=== PATIENT | female | born 1965 | race Caucasian/White ===

== ENCOUNTER 2017-06-05 18:23 | Emergency (ER) | payer BC ==
[2017-06-05 18:57] VITALS: BP 126/80
[2017-06-05] MEDS ORDERED: Lidocaine 1% 50 ML MDV INJECT ONE (19:07)
[2017-06-05] MEDS ORDERED: Cephalexin 500 MG Cap PO ONE (19:07)
--- NOTE | 2017-06-05 19:08 | EDM.PDOC ---
ED HPI GENERAL MEDICAL PROBLEM - General Chief Complaint: Laceration Stated Complaint: R LEG LAC Time Seen by Provider: 06/05/17 18:58 Source of Information: Reports: Patient History Limitations: Reports: No Limitations - History of Present Illness INITIAL COMMENTS - FREE TEXT/NARRATIVE: Patient is a 52-year-old female presents ED complaining of a puncture wound to the right lateral aspect of lower leg. Patient states she had been working in the garden and cut open a bag of manure with a set of saima. While working on the ground she moved her leg accidentally impaling the saima into her lower leg. It did bleed quite a bit prior to arrival. This has been controlled ever since. Pain has been minimal. She has no sensory/motor deficits. Tetanus is up- to-date. She offers no complaints this time. Saima were not clean. She did cleanse the laceration with tap water. Right Lower Leg Pain Score (Numeric/FACES): 4 - Related Data Allergies Allergy/AdvReac Type Severity Reaction Status Date / Time metronidazole [From Flagyl] Allergy Hallucinati Verified 02/28/15 17:32 ons Home Meds: Home Meds Folic Acid 800 mcg PO DAILY 02/28/15 [History] Magnesium Oxide 500 mg PO DAILY 02/28/15 [History] Methotrexate Sodium [Methotrexate] 8 tab PO WEEKLY 02/28/15 [History] Multivitamin with Minerals [Multivitamins with Minerals] 1 tab PO DAILY [History] [place]-3 Fatty Acids [[place]-3] 1 gm PO DAILY 02/28/15 [History] Cephalexin [Keflex] 500 mg PO Q6HR #28 cap 06/05/17 [Rx] Gabapentin [Neurontin] 200 mg PO DAILY 06/05/17 [History] Naltrexone 6 mg PO DAILY 06/05/17 [History] Spironolactone 50 mg PO DAILY 06/05/17 [History] rOPINIRole [Requip] 0.25 mg PO DAILY 06/05/17 [History] Past Medical History Musculoskeletal History: Reports: RA, Other (See Below) Other Musculoskeletal History: restless leg syndrome Endocrine/Metabolic History: Reports: Hypothyroidism Other Endocrine/Metabolic History: partial thyroidectomy - Past Surgical History Female Surgical History: Reports: Hysterectomy Social & Family History - Tobacco Use Smoking Status *Q: Never Smoker Second Hand Smoke Exposure: No - Caffeine Use Caffeine Use: Reports: Coffee - Alcohol Use Days Per Week of Alcohol Use: 0 Number of Drinks Per Day: 0 Total Drinks Per Week: 0 - Recreational Drug Use Recreational Drug Use: No Drug Use in Last 12 Months: No ED ROS GENERAL - Review of Systems Review Of Systems: See Below Musculoskeletal: Reports: Leg Pain Skin: Reports: Wound Neurological: Denies: Numbness, Tingling, Difficulty Walking ED EXAM, SKIN/RASH Exam: See Below Exam Limited By: No Limitations General Appearance: Alert, WD/WN, No Apparent Distress Ears: Hearing Grossly Normal Nose: Normal Inspection Throat/Mouth: Normal Voice, No Airway Compromise Neck: Normal Inspection, Supple Respiratory/Chest: No Respiratory Distress, No Accessory Muscle Use Cardiovascular: Normal Peripheral Pulses, Regular Rate, Rhythm Extremities: Other (Laceration to the right lower leg lateral aspect mid calf. No bleeding present. Minimal pain on palpation. No sensory or motor deficits noted.) Neurological: Alert, Oriented, Normal Cognition, No Motor/Sensory Deficits Psychiatric: Normal Affect, Normal Mood Skin: Warm, Dry, Normal Color ED SKIN PROCEDURES - Laceration/Wound Repair Right Lower Leg Lac/Wound length In cm: 2 Appearance: Subcutaneous, Clean Distal NVT: Neuro & Vascular Intact, No Tendon Injury Anesthetic Type: Local Local Anesthesia - Lidocaine (Xylocaine): 1% Plain Local Anesthetic Volume: 5cc Exploration/Debridement/Repair: Wound Explored, in a Bloodless Field, No Foreign Material Found Suture Size: 3-0 # of Sutures: 3 (loosely tied) Suture Type: Prolene, Interrupted, Simple Drain Placement: No Sterile Dressing Applied: Nurse Tetanus Status Addressed: Yes Complications: No Course - Vital Signs Last Recorded V/S: Last Vital Signs Temp 99.3 F 06/05/17 18:55 Pulse 96 06/05/17 18:55 Resp 20 06/05/17 18:55 BP 126/80 06/05/17 18:55 Pulse Ox 99 06/05/17 18:55 - Orders/Labs/Meds Meds: Medications Discontinued Medications Generic Name Dose Route Start Last Admin Trade Name Kev PRN Reason Stop Dose Admin Cephalexin 500 mg 06/05/17 19:07 06/05/17 19:12 Keflex PO 06/05/17 19:08 500 mg ONETIME ONE Administration Lidocaine HCl 50 ml 06/05/17 19:07 07/08/17 19:12 Xylocaine 1% INJECT 06/05/17 19:08 50 ml ONETIME ONE Administration - Re-Assessments/Exams Free Text/Narrative Re-Assessment/Exam: Ordered 1% lidocaine. Tetanus is uptodate. Laceration closed with no complications. Loose sutures placed. Ordered keflex 500mg PO x 1 prophylactically for increased infection risk. Departure - Departure Time of Disposition: 19:05 Disposition: Home, Self-Care 01 Condition: Good Clinical Impression: Laceration of leg Qualifiers: Encounter type: initial encounter Laterality: right Qualified Code(s): S81.811A - Laceration without foreign body, right lower leg, initial encounter - Discharge Information Prescriptions: Cephalexin [Keflex] 500 mg PO Q6HR #28 cap Instructions: Puncture Wound, [id number], Stitches, Tivoli, or Adhesive Wound Closure, [id number], Laceration Care, Adult, [id number] Referrals: Mica Mackenzie MD [Primary Care Provider] - Forms: ED Department Discharge Additional Instructions: Sutures to removed in 10 days. F/U with a provider at [facility] to do so. Cleanse site twice daily with soap and water, pat dry, reapply Triple Antibiotic ointment, and dressing. Keep area clean and dry. Refrain from soaking. Take the Keflex as prescribed. Return back to the ED for increased swelling, increased redness, fever/chills, or purulent drainage.
== END 2017-06-05 19:49 | disposition home or self-care (01) ==
LOC: JD.ED 18:23
DX: S81.811A Laceration without foreign body, right lower leg, initial encounter (principal); E89.0 Postprocedural hypothyroidism; Z90.710 Acquired absence of both cervix and uterus; Z79.899 Other long term (current) drug therapy; Z88.1 Allergy status to other antibiotic agents; W27.8XXA Contact with other nonpowered hand tool, initial encounter; Y93.89 Activity, other specified; Y92.89 Other specified places as the place of occurrence of the external cause
CPT/HCPCS: 12001; 99283; A9270; 99282-25

== ENCOUNTER 2018-04-12 12:07 | Emergency (ER) | payer BC ==
--- NOTE | 2018-04-12 13:29 | CT ---
CT cervical spine Technique: Multiple axial sections were obtained from above C1 to the top of T2. Reconstructed sagittal and coronal images were reviewed. Comparison: No prior cervical spine imaging. Findings: Disc space narrowing is noted C5-C6 with mild posterior osteophytes and anterior osteophytes. Slight degenerative change is seen within the uncovertebral joints at C5-C6 also noted. Other disc spaces are preserved. Vertebral body heights are maintained. Incidental ligamentum nuchal calcification is seen. Posterior skull base is intact. No cervical spine fracture is seen. No bony central or bony neural foraminal stenosis is seen. Impression: 1. Mild degenerative change. 2. Nothing acute is seen on CT study of the cervical spine. Diagnostic code #2
[2018-04-12] MEDS ORDERED: Ibuprofen 600 MG Tab PO ONE (13:36)
--- NOTE | 2018-04-12 13:36 | CT ---
Head CT Technique: Multiple axial sections through the brain were obtained. Intravenous contrast was not utilized. Comparison: Previous MRI brain of 01/12/12. Findings: Ventricles along with basal cisterns and sulci over the convexities appear within normal limits for the patient's age. No abnormal parenchymal densities are seen. No evidence of intracranial hemorrhage. No midline shift or mass effect is seen. Visualized sinuses are clear. Impression: 1. Nothing acute is seen on noncontrast head CT exam. Diagnostic code #1
--- NOTE | 2018-04-12 14:43 | CR ---
Lumbar spine: AP, lateral and coned-down lateral views centered to the lumbosacral junction were obtained. Comparison: Previous lumbar spine exam of 12/14/13. Moderate disc space narrowing is noted at L4-L5. Other disc spaces are maintained. Scattered endplate osteophytes are seen. Vertebral body heights are maintained with no compression deformity. Pedicles are intact. Visualized transverse and spinous processes are intact. No fracture or subluxation is appreciated. Impression: 1. Disc space narrowing at L4-L5 which is an interval change from prior CT exam. 2. Mild degenerative endplate spurring is seen. 3. Nothing acute is appreciated on three-view lumbar spine exam. Diagnostic code #2
--- NOTE | 2018-04-12 14:44 | CR ---
Right foot: Four views of the right foot were obtained. Comparison: No prior foot exam. Soft tissue swelling is identified. Deformity is noted of the distal proximal phalanx of the fourth and fifth toes compatible with old injury. Surgical wire is identified within the proximal phalanx of the first toe with evidence of previous metatarsal shaving within the distal first digit. Mild soft tissue prominence is seen at the MTP joint of the first digit. No acute fracture or other bony abnormality is seen. Impression: 1. Incidental findings. No acute bony abnormality is identified on right foot exam. Diagnostic code #2
--- NOTE | 2018-04-12 14:44 | CR ---
Left foot: Four views of the left foot were obtained. Comparison: No prior left foot exam. Small plantar spur is seen. Deformity is noted of the distal aspect of the proximal phalanx of the fourth toe most likely representing old injury. No acute fracture, dislocation or other bony abnormality is seen. Impression: 1. Incidental findings. Nothing acute is appreciated on left foot exam. Diagnostic code #2
--- NOTE | 2018-04-12 15:09 | EDM.PDOC ---
ED HPI GENERAL MEDICAL PROBLEM - General Chief Complaint: Trauma Stated Complaint: ALL OVER BODY PAIN/JUMPED OUT 2 STORY WINDOW Time Seen by Provider: 04/12/18 12:20 Source of Information: Reports: Patient History Limitations: Reports: No Limitations - History of Present Illness INITIAL COMMENTS - FREE TEXT/NARRATIVE: The patient was baby sitting her grandchildren. She went into an upstairs room to change a 5 month old. They 2 year old locked her in the room. They have special locks on the door. She could not get out of the room so she jumped out of a second story window. She landed on her feet and then fell over. She hit her head on an old fridge outside. She had no LOC. She has a headache, neck pain, low back pain and left and right foot pain. She has some bruising to both forearms. Onset: Sudden Duration: Minutes: Location: Reports: Head, Neck, Back, Lower Extremity, Left, Lower Extremity, Right Quality: Reports: Sharp Severity: Moderate Improves with: Reports: Immobilization Worsens with: Reports: Movement Context: Reports: Trauma (She jumped out of a 2nd story window) Associated Symptoms: Reports: No Other Symptoms Right Feet Pain Score (Numeric/FACES): 6 - Related Data Allergies Allergy/AdvReac Type Severity Reaction Status Date / Time metronidazole [From Flagyl] Allergy Hallucinati Verified 04/12/18 12:21 ons sumatriptan Allergy Paralysis Verified 04/12/18 12:21 Home Meds: Home Meds Folic Acid 800 mcg PO DAILY 02/28/15 [History] Magnesium Oxide 500 mg PO DAILY 02/28/15 [History] Methotrexate Sodium [Methotrexate] 8 tab PO WEEKLY 02/28/15 [History] Multivitamin with Minerals [Multivitamins with Minerals] 1 tab PO DAILY [History] [place]-3 Fatty Acids [[place]-3] 1 gm PO DAILY 02/28/15 [History] Cephalexin [Keflex] 500 mg PO Q6HR #28 cap 06/05/17 [Rx] Gabapentin [Neurontin] 200 mg PO DAILY 06/05/17 [History] Naltrexone 6 mg PO DAILY 06/05/17 [History] Spironolactone 50 mg PO DAILY 06/05/17 [History] rOPINIRole [Requip] 0.25 mg PO DAILY 06/05/17 [History] Hydrocodone/Acetaminophen [Hydrocodon-Acetaminophen 5-325] 1 - 2 each PO Q6HR PRN #20 tablet 04/12/18 [Rx] predniSONE [Prednisone] 40 mg PO DAILY #10 tablet 04/12/18 [Rx] Past Medical History Musculoskeletal History: Reports: RA, Other (See Below) Other Musculoskeletal History: restless leg syndrome Endocrine/Metabolic History: Reports: Hypothyroidism Other Endocrine/Metabolic History: partial thyroidectomy - Past Surgical History Female Surgical History: Reports: Hysterectomy Social & Family History - Tobacco Use Smoking Status *Q: Never Smoker - Caffeine Use Caffeine Use: Reports: Coffee - Recreational Drug Use Recreational Drug Use: No Review of Systems - Review of Systems Review Of Systems: See Below Constitutional: Reports: No Symptoms Eyes: Reports: No Symptoms Ears: Reports: No Symptoms Nose: Reports: No Symptoms Mouth/Throat: Reports: No Symptoms Respiratory: Reports: No Symptoms Cardiovascular: Reports: No Symptoms GI/Abdominal: Reports: No Symptoms Genitourinary: Reports: No Symptoms Musculoskeletal: Reports: Neck Pain, Back Pain, Other (Right and left foot pain) ED EXAM, GENERAL - Physical Exam Exam: See Below Exam Limited By: No Limitations General Appearance: Alert, No Apparent Distress Ears: Normal External Exam Nose: Normal Inspection Head: Other (Mild pain upon palpation) Neck: Tender Lateral Respiratory/Chest: No Respiratory Distress, Lungs Clear, Normal Breath Sounds Cardiovascular: Regular Rate, Rhythm, No Edema, No Murmur GI/Abdominal: Soft, Non-Tender, No Organomegaly, No Mass Back Exam: Other (Pain upon palpation to the low back) Extremities: Other (Ecchymosis and edema to the left foot. Pain upon palpation to the left lateral foot.) Neurological: Alert, Oriented, No Motor/Sensory Deficits Course - Vital Signs Last Recorded V/S: Last Vital Signs Temp 98.6 F 04/12/18 12:15 Pulse 77 04/12/18 12:15 Resp 16 04/12/18 12:15 BP 123/76 04/12/18 12:15 Pulse Ox 99 04/12/18 12:15 - Orders/Labs/Meds Meds: Medications Discontinued Medications Generic Name Dose Route Start Last Admin Trade Name Freq PRN Reason Stop Dose Admin Ibuprofen 600 mg 04/12/18 13:36 04/12/18 13:46 Motrin PO 04/12/18 13:37 600 mg ONETIME ONE Administration - Re-Assessments/Exams Free Text/Narrative Re-Assessment/Exam: 04/12/18 15:12 A trauma alert was called. I ordered a CT of her head and cervical spine, x- ray of her low back and both feet. The CT of her head and cervical spine shows no injury. The x-ray of her lumbar spine shows decreased disc space at L4-L5. The x-rays of her feet look good. She had pain so I gave her some mortrin here. I will discharge her home. Departure - Departure Time of Disposition: 15:15 Disposition: Home, Self-Care 01 Condition: Good Clinical Impression: Fall Qualifiers: Encounter type: initial encounter Qualified Code(s): W19.XXXA - Unspecified fall, initial encounter Low back pain Qualifiers: Chronicity: acute Back pain laterality: bilateral Sciatica presence: without sciatica Qualified Code(s): M54.5 - Low back pain Contusion of right foot Qualifiers: Encounter type: initial encounter Qualified Code(s): S90.31XA - Contusion of right foot, initial encounter Sprain of right foot Qualifiers: Encounter type: initial encounter Qualified Code(s): S93.601A - Unspecified sprain of right foot, initial encounter Sprain of left foot Qualifiers: Encounter type: initial encounter Qualified Code(s): S93.602A - Unspecified sprain of left foot, initial encounter - Discharge Information Prescriptions: Hydrocodone/Acetaminophen [Hydrocodon-Acetaminophen 5-325] 1 - 2 each PO Q6HR PRN #20 tablet PRN Reason: Pain predniSONE [Prednisone] 40 mg PO DAILY #10 tablet Referrals: Mica Mackenzie MD [Primary Care Provider] - 1 Week Forms: ED Department Discharge Additional Instructions: Ice the areas that hurt for 15 minutes 3 times per day for 2 days. Take the hydrocodone as needed for pain. Please return if you are worse.
[2018-04-12 15:32] VITALS: BP 120/70
== END 2018-04-12 15:25 | disposition home or self-care (01) ==
LOC: JD.ED 12:07
DX: S93.601A Unspecified sprain of right foot, initial encounter (principal); S93.602A Unspecified sprain of left foot, initial encounter; M54.5 Low back pain; E03.9 Hypothyroidism, unspecified; Z88.8 Allergy status to other drugs, medicaments and biological substances; Z79.899 Other long term (current) drug therapy; Z90.710 Acquired absence of both cervix and uterus; W17.89XA Other fall from one level to another, initial encounter
CPT/HCPCS: 70450; 72100; 72125; 73630; 99284; A9270

== ENCOUNTER 2019-02-23 10:31 | Emergency (ER) | payer BC ==
[2019-02-23] MEDS ORDERED: diphenhydrAMINE 50 MG/ML SDV IM ONE (10:57)
[2019-02-23] MEDS ORDERED: Famotidine 20 MG Tab PO ONE (11:03)
[2019-02-23] MEDS ORDERED: EPINEPHrine 1 MG/ML SDV IM ONE (11:03)
[2019-02-23] MEDS ORDERED: predniSONE 20 MG Tab ONE (11:20)
--- NOTE | 2019-02-23 11:36 | EDM.PDOC ---
ED HPI GENERAL MEDICAL PROBLEM - General Chief Complaint: Allergic Reaction Stated Complaint: ALLERGIC REACTION ALL OVER BODY Time Seen by Provider: 02/23/19 10:56 Source of Information: Reports: Patient, RN Notes Reviewed History Limitations: Reports: No Limitations - History of Present Illness INITIAL COMMENTS - FREE TEXT/NARRATIVE: Patient is a 54-year-old female who presents to the ED for the evaluation of an allergic reaction. 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 She states that she drank 3 or 4 drinks from a new nutritional shake this morning and she states shortly after she felt her throat started to feel itchy and funny while she was showering. She did look at the ingredient label afterwards and noticed the fine print that stated it did have psyllium in it. She admits to having mild swelling and redness to her eyes and mouth and feels itchy all over. She tried to take a Benadryl at home, but this did not stay down. She denies any other nausea/vomiting, cough, shortness of breath, chest pain. She states that she feels mild chest tightness but is still able to breathe normally. Onset: Sudden - Related Data Allergies Allergy/AdvReac Type Severity Reaction Status Date / Time metronidazole [From Flagyl] Allergy Hallucinati Verified 02/23/19 10:44 ons psyllium Allergy Hives Verified 02/23/19 10:44 sumatriptan Allergy Paralysis Verified 02/23/19 10:44 Home Meds: Home Meds Folic Acid 800 mcg PO DAILY 02/28/15 [History] Magnesium Oxide 500 mg PO DAILY 02/28/15 [History] Methotrexate Sodium [Methotrexate] 8 tab PO WEEKLY 02/28/15 [History] Multivitamin with Minerals [Multivitamins with Minerals] 1 tab PO DAILY [History] [place]-3 Fatty Acids [[place]-3] 1 gm PO DAILY 02/28/15 [History] Gabapentin [Neurontin] 100 mg PO BEDTIME 06/05/17 [History] Spironolactone 50 mg PO DAILY 06/05/17 [History] Pramipexole [Mirapex] 0.75 mg PO BEDTIME 02/23/19 [History] Tofacitinib Citrate [Xeljanz] 5 mg PO BID 02/23/19 [History] predniSONE [Deltasone] 40 mg PO ASDIRECTED #8 tablet 02/23/19 [Rx] Past Medical History Musculoskeletal History: Reports: RA, Other (See Below) Other Musculoskeletal History: restless leg syndrome Endocrine/Metabolic History: Reports: Hypothyroidism Other Endocrine/Metabolic History: partial thyroidectomy - Past Surgical History Female Surgical History: Reports: Hysterectomy Social & Family History - Tobacco Use Smoking Status *Q: Never Smoker - Caffeine Use Caffeine Use: Reports: None - Recreational Drug Use Recreational Drug Use: No ED ROS ALLERGIC REACTION - Review of Systems Review Of Systems: See Below Constitutional: Denies: Fever, Chills HEENT: Reports: Throat Swelling (Mild throat tightness feeling) Respiratory: Denies: Shortness of Breath, Wheezing, Cough Cardiovascular: Denies: Chest Pain Endocrine: Reports: No Symptoms GI/Abdominal: Reports: No Symptoms : Reports: No Symptoms Musculoskeletal: Reports: No Symptoms Skin: Reports: Urticaria (Generalized with hives) Neurological: Reports: No Symptoms Psychiatric: Reports: No Symptoms Hematologic/Lymphatic: Reports: No Symptoms Immunologic: Reports: No Symptoms ED EXAM GENERAL NO PERIP PULSE - Physical Exam Exam: See Below Exam Limited By: No Limitations General Appearance: Alert, WD/WN, Mild Distress (Patient is itching her scalp and arms upon initial presentation) Eye Exam: Bilateral Eye: EOMI, Normal Inspection, PERRL Ears: Normal External Exam Nose: Normal Inspection Throat/Mouth: Normal Inspection, Normal Lips, Normal Teeth, Normal Gums, Normal Oropharynx, Normal Voice, No Airway Compromise. No: Perioral Cyanosis Head: Atraumatic, Normocephalic Neck: Normal Inspection Respiratory/Chest: No Respiratory Distress, Lungs Clear, Normal Breath Sounds, No Accessory Muscle Use, Chest Non-Tender Cardiovascular: Normal Peripheral Pulses, Regular Rate, Rhythm, No Murmur GI/Abdominal: Normal Bowel Sounds, Soft, Non-Tender, No Distention, No Mass Back Exam: Normal Inspection Extremities: Normal Inspection, Normal Range of Motion, Non-Tender, No Pedal Edema, Normal Capillary Refill Neurological: Alert, Oriented, Normal Cognition, No Motor/Sensory Deficits Psychiatric: Normal Affect, Normal Mood Skin Exam: Warm, Dry, Intact, Normal Color, Other (Patient does have a generalized hive-like lesions that are itchy, there is mild redness noted to her face also some mild swelling.) Course - Vital Signs Last Recorded V/S: Last Vital Signs Temp 97.1 F 02/23/19 10:40 Pulse 80 02/23/19 12:32 Resp 16 02/23/19 12:32 BP 107/60 02/23/19 12:32 Pulse Ox 98 02/23/19 12:32 - Orders/Labs/Meds Meds: Medications Discontinued Medications Generic Name Dose Route Start Last Admin Trade Name Kev PRN Reason Stop Dose Admin Diphenhydramine HCl 25 mg 02/23/19 10:57 02/23/19 11:16 Benadryl IM 02/23/19 10:58 25 mg ONETIME ONE Administration Epinephrine HCl 0.3 mg 02/23/19 11:03 02/23/19 11:15 Adrenalin IM 02/23/19 11:04 0.3 mg ONETIME ONE Administration Famotidine 20 mg 02/23/19 11:03 02/23/19 11:17 Pepcid PO 02/23/19 11:04 20 mg ONETIME ONE Administration Prednisone 40 mg 02/24/19 11:06 02/23/19 11:21 Prednisone PO 02/24/19 11:07 40 mg ONETIME ONE Administration Prednisone Confirm 02/23/19 11:20 Prednisone Administered 02/23/19 11:21 Dose 40 mg .ROUTE .STK-MED ONE - Re-Assessments/Exams Free Text/Narrative Re-Assessment/Exam: 02/23/19 11:38 Patient presents to the ED for the evaluation of an allergic reaction to psyllium. I did order 40 mg PO prednisone, 25 mg IM Benadryl, 20 mg PO Pepcid and 0.3mg IM of epinephrine for initial management. We'll reassess the patient to determine need for further epinephrine at this time. Plan to send the patient home on a short burst of prednisone. 02/23/19 12:12 Patient was reassessed at bedside and states she feels much better. Most of her itching has relieved by 95%. Will discharge her home with a short course of prednisone. Have also recommended the use of OTC Zantac or Pepcid for further itching relief. Departure - Departure Time of Disposition: 12:13 Disposition: Home, Self-Care 01 Condition: Fair Clinical Impression: Allergic reaction Qualifiers: Encounter type: initial encounter Qualified Code(s): T78.40XA - Allergy, unspecified, initial encounter - Discharge Information *PRESCRIPTION DRUG MONITORING PROGRAM REVIEWED*: No *COPY OF PRESCRIPTION DRUG MONITORING REPORT IN PATIENT NILESH: No Prescriptions: predniSONE [Deltasone] 40 mg PO ASDIRECTED #8 tablet Instructions: Anaphylactic Reaction, Adult, Epinephrine Injection Referrals: Mica Mackenzie MD [Primary Care Provider] - Forms: ED Department Discharge Additional Instructions: You have been evaluated in the ED today for your allergic reaction to psyllium. You have been given a combination of medications to relieve your allergic symptoms. You have been provided with prescription for prednisone, please take 2 tablets by mouth once daily for 4 days. This was sent to the [facility] pharmacy. You may also take [id number] Zantac or Pepcid for further itching relief. Please return to the ED if your symptoms change or worsen.
[2019-02-23 12:35] VITALS: BP 107/60
[2019-02-24] MEDS ORDERED: predniSONE 20 MG Tab PO ONE (11:06)
== END 2019-02-23 12:32 | disposition home or self-care (01) ==
LOC: JD.ED 10:31
DX: L50.0 Allergic urticaria (principal); E03.9 Hypothyroidism, unspecified; Z91.018 Allergy to other foods; Z88.8 Allergy status to other drugs, medicaments and biological substances; Z79.899 Other long term (current) drug therapy
CPT/HCPCS: 96372; 99283; A9270; J0171; J1200

== ENCOUNTER 2020-06-20 22:37 | Emergency (ER) | payer BC ==
[2020-06-20 22:48] VITALS: BP 141/76; PULSE 66
[2020-06-20] MEDS ORDERED: Tamsulosin 0.4 MG Cap.ER PO ONE (23:06)
[2020-06-20] MEDS ORDERED: HYDROmorphone 0.5 MG/0.5 ML Syringe IVPUSH ONE (23:06)
[2020-06-20] MEDS ORDERED: Ondansetron 4 MG/2 ML SDV IVPUSH ONE (23:06)
[2020-06-20] MEDS ORDERED: Ketorolac 30 MG/ML SDV IVPUSH STA (23:06)
--- NOTE | 2020-06-20 23:11 | EDM.PDOC ---
ED HPI GENERAL MEDICAL PROBLEM - General Chief Complaint: Flank Pain Stated Complaint: FLANK PAIN Time Seen by Provider: 06/20/20 22:47 Source of Information: Reports: Patient, Family (Daughter) History Limitations: Reports: No Limitations - History of Present Illness INITIAL COMMENTS - FREE TEXT/NARRATIVE: Mrs. Singh is a very pleasant 55-year-old woman with a past medical history significant for ureterolithiasis and rheumatoid arthritis, who now presents to the ED stating that she developed right flank pain this past 06/18/2020, and that it has been persistent since, although less severe, and has not been present today. She has been experiencing lower back pain, felt across her lower back, today, although she acknowledges that, due to her rheumatoid arthritis, she often has lower back pain. She then developed sudden onset lower abdominal pain/pressure around 19:00 this evening. She vomited once, and therefore did not take any [id number] or home remedies prior to coming to the ED. No recent fever, chills, constipation, or diarrhea. She states that she has not urinated since around 19:00 this evening, having been able to only dribble a few drops, however, she has not experienced any dysuria, urinary frequency or urgency, or gross hematuria. The patient states that her current symptoms are very similar to when she experienced a ureterolith in the past. She previously had to undergo cystoscopy with ureteral stent. Here in the ED, the patient's initial BP is found to be mildly elevated at 141/76, otherwise, she is hemodynamically stable, afebrile, saturating 100% on room air. Other than the above symptoms, the patient denies recent fever, chills, sore throat, ear pain, nasal or sinus congestion, cough, dyspnea, chest pain, palp itations, constipation, diarrhea, urinary symptoms, recent weight gain or weight loss, recent bloody bowel movements or black bowel movements, recent joint aches, headaches, or rashes. The patient's PCP is Dr. Mica Fuentes. Her [employer] is Dr. Jimenez Cartagena. Bilateral Lower Abdomen Pain Score (Numeric/FACES): 10 - Related Data Allergies Allergy/AdvReac Type Severity Reaction Status Date / Time metronidazole [From Flagyl] Allergy Severe Hallucinati Verified 06/20/20 22:48 ons psyllium Allergy Severe Hives Verified 06/20/20 22:48 sumatriptan Allergy Severe Paralysis Verified 06/20/20 22:48 Home Meds: Home Meds Folic Acid 800 mcg PO DAILY 02/28/15 [History] Magnesium Oxide 500 mg PO DAILY 02/28/15 [History] Methotrexate Sodium [Methotrexate] 8 tab PO WEEKLY 02/28/15 [History] Multivitamin with Minerals [Multivitamins with Minerals] 1 tab PO DAILY 02/28/15 [History] Downs-3 Fatty Acids [Downs-3] 1 gm PO DAILY 02/28/15 [History] Gabapentin [Neurontin] 100 mg PO BEDTIME 06/05/17 [History] Spironolactone 50 mg PO DAILY 06/05/17 [History] Pramipexole [Mirapex] 0.75 mg PO BEDTIME 02/23/19 [History] Tofacitinib Citrate [Xeljanz] 5 mg PO BID 02/23/19 [History] Past Medical History Genitourinary History: Reports: Renal Calculus Musculoskeletal History: Reports: RA Psychiatric History: Reports: Other (See Below) (Restless leg syndrome) - Past Surgical History GI Surgical History: Reports: Other (See Below) (Rectal repair) Female Surgical History: Reports: Breast Reduction, Hysterectomy (partial), Ureteral Stent, Other (See Below) (Baldder repair) Endocrine Surgical History: Reports: Thyroidectomy (partial) Musculoskeletal Surgical History: Reports: Other (See Below) (Right bunionectomy) Social & Family History - Family History Family Medical History: Noncontributory - Tobacco Use Smoking Status *Q: Never Smoker - Caffeine Use Caffeine Use: Reports: Coffee - Alcohol Use Alcohol Use History: Yes Alcohol Use Frequency: Socially - Recreational Drug Use Recreational Drug Use: No - Living Situation & Occupation Living situation: Reports: , with Spouse Occupation: Employed (RN at [employer]) ED ROS GENERAL - Review of Systems Review Of Systems: Comprehensive ROS is negative, except as noted in HPI. ED EXAM, RENAL/ - Physical Exam Exam: See Below Exam Limited By: No Limitations General Appearance: Alert, WD/WN, No Apparent Distress Eye Exam: Bilateral Eye: EOMI, Normal Inspection Ears: Normal External Exam, Hearing Grossly Normal Nose: Normal Inspection Throat/Mouth: Normal Inspection, Normal Lips, Normal Voice, No Airway Compromise Head: Atraumatic, Normocephalic Neck: Normal Inspection, Full Range of Motion Respiratory/Chest: No Respiratory Distress, Lungs Clear, Normal Breath Sounds, No Accessory Muscle Use Cardiovascular: Normal Peripheral Pulses, Regular Rate, Rhythm, No Edema, No Gallop, No JVD, No Murmur, No Rub GI/Abdominal: Normal Bowel Sounds, Soft, Non-Tender (including the lower abdomen), No Organomegaly, No Distention, No Abnormal Bruit, No Mass (Female) Exam: Deferred Rectal (Female) Exam: Deferred Back Exam: Normal Inspection, Full Range of Motion, CVA Tenderness (L). No: CVA Tenderness (R) Extremities: Normal Inspection, Normal Range of Motion, No Pedal Edema, Normal Capillary Refill Neurological: Alert, Oriented, Normal Cognition, No Motor/Sensory Deficits Psychiatric: Normal Affect Skin Exam: Warm, Dry, Intact, Normal Color, No Rash Course - Vital Signs Last Recorded V/S: Last Vital Signs Temp 36.1 C 06/20/20 22:44 Pulse 66 06/20/20 22:44 Resp 18 06/20/20 22:44 BP 141/76 H 06/20/20 22:44 Pulse Ox 100 06/20/20 22:44 - Orders/Labs/Meds Orders: Active Orders 24 hr Category Date Time Status Bladder Scan [RC] ASDIRECTED Care 06/20/20 23:05 Active Abdomen Pelvis wo Cont [CT] Stat Exams 06/20/20 23:05 Taken Labs: Laboratory Tests 06/21/20 Range/Units 00:24 Urine Color Yellow (Yellow) Urine Appearance Cloudy H (Clear) Urine pH 7.0 (5.0-8.0) Ur Specific [place] 1.025 (1.005-1.030) Urine Protein 1+ H (Negative) Urine Glucose (UA) Negative (Negative) Urine Ketones 1+ H (Negative) Urine Occult Blood 3+ H (Negative) Urine Nitrite Negative (Negative) Urine Bilirubin Negative (Negative) Urine Urobilinogen 0.2 (0.2-1.0) Ur Leukocyte Esterase Negative (Negative) Urine RBC >100 H (0-5) /hpf Urine WBC 0-5 (0-5) /hpf Ur Squamous Epith Cells 0-5 (0-5) /hpf Amorphous Sediment Moderate H (NOT SEEN) /hpf Urine Bacteria Moderate H (FEW) /hpf Urine Mucus Rare (FEW) /hpf Meds: Medications Discontinued Medications Generic Name Dose Route Start Last Admin Trade Name Kev PRN Reason Stop Dose Admin Hydromorphone HCl 0.5 mg 06/20/20 23:06 06/20/20 23:16 Dilaudid IVPUSH 06/20/20 23:07 0.5 mg ONETIME ONE Administration Sodium Chloride 1,000 mls @ 150 mls/hr 06/20/20 23:15 06/20/20 23:15 Normal Saline IV 150 mls/hr ASDIRECTED RAZIA Administration Sodium Chloride 1,000 mls @ 999 mls/hr 06/20/20 23:27 06/20/20 23:31 Normal Saline IV 06/21/20 00:27 999 mls/hr ONETIME ONE Administration Ketorolac Tromethamine 30 mg 06/20/20 23:06 06/20/20 23:19 Toradol IVPUSH 06/20/20 23:07 30 mg ONETIME STA Administration Ondansetron HCl 4 mg 06/20/20 23:06 06/20/20 23:15 Zofran IVPUSH 06/20/20 23:07 4 mg ONETIME ONE Administration Tamsulosin HCl 0.4 mg 06/20/20 23:06 06/20/20 23:20 Flomax PO 06/20/20 23:07 0.4 mg ONETIME ONE Administration - Re-Assessments/Exams Free Text/Narrative Re-Assessment/Exam: 06/20/20 23:07 As above, the patient has been suffering from right flank pain Julia, 06/18/2020, although no flank pain today, then she developed lower back pain today, with sudden onset lower abdominal pain and pressure around 19:00 this evening. She has vomited once. She has only dribbled a small amount of urine since 21:00 this evening, but denies urinary symptoms. She states that her symptoms are very similar to a prior kidney stone. On examination, her abdomen is soft and essentially nontender, with normoactive bowel sounds, and she is found to have left, not right, sided CVA tenderness. The etiology of her symptoms is not entirely clear. I have ordered a bladder scan. If there is no urine in the patient's bladder, she will be given generous IV fluid, however, if there is urine in the bladder that she is simply unable to urinate out, we will acquire a urine sample by a quick cath. I have ordered a CT of her abdomen and pelvis without contrast to evaluate for a ureterolith, and in the meantime, the patient will be given oral Flomax, IV Toradol, IV Dilaudid, IV Zofran, and IV fluid. 06/20/20 23:27 Notified by Anabell SULLIVAN that the bladder scan revealed only 63 mL of urine. I have therefore switched the patient's IV fluid to a 1 L IVF bolus. 06/20/20 23:57 CT of the abdomen and pelvis without contrast is read by vRgeovanna as: 1. Prominent left hydroureteronephrosis and left nephrolithiasis. 2. There is an obstructing 9.0 x 6.0 x 7.0 mm proximal left ureteral calculus. 3. There is an obstructing 5.0 x 4.0 mm left UVJ calculus. The patient has not yet provided a urine sample for the urinalysis. 06/21/20 00:52 The patient's urinalysis is remarkable for cloudy appearance, 3+ occult blood with >100 RBCs, negative leukocyte esterase with 0-5 WBCs, negative nitrite with moderate bacteria, and 0-5 squamous epithelial cells. 06/21/20 01:00 Test results discussed with the patient and her daughter. I will discharge the patient home with [facility] prescriptions for Flomax, [employer] [place], and Zofran. I would like her to take [id number] ibuprofen on a regular basis. I will refer her to Dr. Flor. We will make a CD-ROM of her CT images to take with her when she sees him. Departure - Departure Time of Disposition: 01:03 Disposition: Home, Self-Care 01 Condition: Good Clinical Impression: Ureterolithiasis - Discharge Information *PRESCRIPTION DRUG MONITORING PROGRAM REVIEWED*: Not Applicable *COPY OF PRESCRIPTION DRUG MONITORING REPORT IN PATIENT NILESH: Not Applicable Instructions: Kidney Stones, [id number] Referrals: Mica Mackenzie MD [Primary Care Provider] - Jimenez Cartagena MD [Ordering Only Provider] - Devyn Flor MD [Ordering Only Provider] - Forms: ED Department Discharge Additional Instructions: You were seen in the emergency room after experiencing right flank pain since Julia, lower back pain today, then lower abdominal pain this evening, along with nausea and vomiting. Work-up in the ER included a urinalysis and a CT scan of your abdomen and pelvis without contrast. The urinalysis did not indicate that you have a urinary tract infection. The CT scan found a stone in your left kidney, a stone in your proximal left ureter, and a another stone at your left ureterovesicular junction. Based on the size and locations of the stones, you will not likely pass them on your own. He will need to see a Urologist. We recommend that you take [id number] ibuprofen, 3 to 4 tablets (600-800 mg) up to every 8 hours, with food, [id number]. You may take 1 to 2 tablets of the opioid pain reliever Percocet up to every 6 hours, as needed for pain not relieved by ibuprofen. If you take Percocet, do not drive for 12 hours afterwards. Percocet may cause constipation, so consider taking a stool softener. Take 1 tablet of the anti-spasm medicine tamsulosin (Flomax) every evening, starting this evening, 06/21/2020, as prescribed. You may dissolve 1 tablet of the anti-nausea medicine Zofran on your tongue up to every 8 hours, as needed for nausea/vomiting. Stay adequately hydrated. It does not really matter what type of fluid you drink. Follow-up with the Urologist Dr. Devyn Flor, in [place], at the next available appointment. Make sure that the director child abuse therapy understands that you are following up from the ER. A CD-ROM of your CT images has been provided to you. Make sure that you take t he CD-ROM with you when you see Dr. Flor. If any other problems, please do not hesitate to return to the ER. Sepsis Event Note (ED) - Evaluation Sepsis Screening Result: No Definite Risk - Focused Exam Vital Signs: Vital Signs Temp Pulse Resp BP Pulse Ox 06/20/20 22:44 36.1 C 66 18 141/76 H 100 - My Orders Last 24 Hours: My Active Orders 06/20/20 23:05 Bladder Scan [RC] ASDIRECTED Abdomen Pelvis wo Cont [CT] Stat - Assessment/Plan Last 24 Hours: My Active Orders 06/20/20 23:05 Bladder Scan [RC] ASDIRECTED Abdomen Pelvis wo Cont [CT] Stat
[2020-06-20] MEDS ORDERED: Sodium Chloride 0.9% 1,000 ML IV SCH (23:15)
[2020-06-20] MEDS ORDERED: Sodium Chloride 0.9% 1,000 ML IV ONE (23:27)
--- NOTE | 2020-06-21 09:20 | CT ---
CT abdomen and pelvis Technique: Multiple axial sections were obtained from slightly below the top of the liver inferiorly through the pubic symphysis. Intravenous and oral contrast not utilized. Study has been performed as a ureteral stone protocol. Comparison: Prior CT abdomen and pelvis exam of 06/26/13. Findings: Dilated collecting system of the left kidney with dilated ureter. Calculus is noted within the proximal left ureter located slightly past the UPJ measuring about 9 mm. 2nd obstructing stone is noted within the distal left ureter at the UVJ measuring about 4-5 mm. Scattered small nonobstructing calculi noted within the left kidney. Small hyperdense lesion is noted off the upper left kidney measuring 6 mm which most likely represents a small hemorrhagic cyst. Low density abnormality is noted within the mid right kidney measuring 9 mm which is most likely due to a small cortical cyst. Other findings: Visualized lung bases show nothing acute. Noncontrast appearance of the visualized liver shows no focal abnormality. Spleen appears within normal limits. Adrenal glands show no nodule. Pancreas shows no discrete abnormality. Gallbladder contains no calcified gallstones. Aorta shows no aneurysm. No retroperitoneal adenopathy or mesenteric abnormalities are seen. Fat-containing umbilical hernia is identified. Appendix is seen which is normal. No pelvic mass or adenopathy is seen. No free fluid or inflammatory change is seen within the abdomen or pelvis. Bone window settings were reviewed which shows no acute osseous finding. Disc space narrowing and vacuum phenomena are noted within the L4-5 disc. Evidence of annular rupture at L4-5 with a small amount of epidural air being seen within the central canal. Impression: 1. Dilated left ureter with 2 ureteral stones. Proximal stone located slightly past the UPJ measuring 9.0 mm. Distal stone measures 4-5 mm and is located near the UVJ within the distal left ureter. 2. Small nonobstructing calculi within the left kidney. Other renal findings believed to be incidental as described above. 3. Other findings believed to be nonacute as described above. Diagnostic code #3 This report was dictated in MDT I agree with preliminary report from geovanna, finalized on 06/21/20, 12:54 AM Central Daylight Time
== END 2020-06-21 01:31 | disposition home or self-care (01) ==
LOC: JD.ED 22:37
DX: N13.2 Hydronephrosis with renal and ureteral calculous obstruction (principal); R11.10 Vomiting, unspecified; Z88.1 Allergy status to other antibiotic agents; Z88.8 Allergy status to other drugs, medicaments and biological substances; Z79.899 Other long term (current) drug therapy; Z90.710 Acquired absence of both cervix and uterus; Z98.890 Other specified postprocedural states
CPT/HCPCS: 51798; 74176; 81001; 96361; 96374; 96375; 99284; A9270; J1170; J1885; J2405; J7030; 99283

== ENCOUNTER 2022-08-03 16:24 | Emergency (ER) | payer BC ==
[2022-08-03 17:40] VITALS: BP 127/84; PULSE 79
[2022-08-03] MEDS ORDERED: Ondansetron 4 MG/2 ML SDV IVPUSH ONE (18:58)
[2022-08-03] MEDS ORDERED: HYDROmorphone 0.5 MG/0.5 ML Syringe IVPUSH ONE (18:58)
[2022-08-03] MEDS ORDERED: Ketorolac 30 MG/ML SDV IVPUSH ONE (18:58)
[2022-08-03] MEDS ORDERED: Sodium Chloride 0.9% 1,000 ML IV STA (18:58)
[2022-08-03] MEDS ORDERED: Cefdinir 300 MG Cap PO ONE (20:57)
[2022-08-03] MEDS ORDERED: Acetaminophen/oxyCODONE 325-5 MG Tab PO ONE (20:57)
== END 2022-08-03 21:20 | disposition home or self-care (01) ==
LOC: JD.ED 16:24
DX: N39.0 Urinary tract infection, site not specified (principal); Z88.8 Allergy status to other drugs, medicaments and biological substances; Z79.899 Other long term (current) drug therapy; Z90.710 Acquired absence of both cervix and uterus
CPT/HCPCS: 36415; 74176; 80053; 81001; 85025; 86140; 87086; 96374; 96375; 99284; A9270; J1170; J1885; J2405; J7030

== ENCOUNTER 2023-04-08 17:21 | Emergency (ER) | payer BC ==
[2023-04-08 17:38] VITALS: BP 118/76; PULSE 80
[2023-04-08] MEDS ORDERED: Sodium Chloride 0.9% 10 ML Syringe FLUSH PRN (18:25)
[2023-04-08 18:46] LABS: BASOPHILS ABSOLUTE AUTO 0.02 K/mm3 (0.01-0.08); BASOPHILS PERCENT AUTO 0.3 % (0.1-1.2); EOSINOPHILS ABSOLUTE AUTO 0.26 K/mm3 (0.04-0.36); EOSINOPHILS PERCENT AUTO 3.9 (0.7-5.8); HEMATOCRIT 36.9 % (34.1-44.9); HEMOGLOBIN 12.1 gm/dl (11.2-15.7); IMMATURE GRAN ABSOLUTE AUTO 0.01 K/mm3 (0.00-0.10); IMMATURE GRAN PERCENT AUTO 0.2 % (<=1.0); LYMPHOCYTES ABSOLUTE AUTO 0.87 K/mm3 (1.18-3.74); LYMPHOCYTES PERCENT AUTO 13.1 % (19.3-51.7); MEAN CORPUSCULAR HEMOGLOBIN 30.5 pg (25.6-32.2); MEAN CORPUSCULAR HGB CONC 32.8 g/dl (32.2-35.5); MEAN CORPUSCULAR VOLUME 92.9 fl (79.4-94.8); MEAN PLATELET VOLUME 9.3 fl (9.4-12.3); MONOCYTES ABSOLUTE AUTO 0.58 K/mm3 (0.24-0.36); MONOCYTES PERCENT AUTO 8.7 % (4.7-12.5); NEUTROPHILS ABSOLUTE AUTO 4.92 K/mm3 (1.56-6.13); NEUTROPHILS PERCENT AUTO 73.8 % (34.0-71.1); PLATELET COUNT,PLT 205 K/mm3 (182-369); RED BLOOD CELL COUNT 3.97 M/mm3 (3.98-5.22); WHITE BLOOD CELL COUNT,WBC 6.66 K/mm3 (3.98-10.04)
[2023-04-08 18:46] LABS: APPEARANCE,URINE SLT CLOUDY (Clear); BILIRUBIN,URINE NEGATIVE (Negative); COLOR,URINE YELLOW (Yellow); GLUCOSE,URINE NEGATIVE (Negative); KETONES,URINE NEGATIVE (Negative); LEUKOCYTE ESTERASE,URINE TRACE (Negative); NITRITE,URINE NEGATIVE (Negative); OCCULT BLOOD,URINE 2+ (Negative); PH,URINE 6.5 (5.0-8.0); PROTEIN,URINE 1+ (Negative); UROBILINOGEN,URINE 0.2 (0.2-1.0)
[2023-04-08 18:54] LABS: BACTERIA,URINE FEW /hpf (FEW); MUCUS,URINE MODERATE /hpf (FEW); RBC,URINE TOO NUMEROUS TO CNT /hpf (0-5); SQUAMOUS EPITHELIAL CELLS,UR 0-5 /hpf (0-5)
[2023-04-08 19:03] LABS: A/G RATIO 0.9 (1-2); ALBUMIN 3.2 g/dl (3.4-5.0); ANION GAP 11.8 (5-15); BILIRUBIN TOTAL 0.4 mg/dL (0.2-1.0); CALCIUM 8.7 mg/dL (8.5-10.1); EST CRCL DRUG DOSING (CG) 67.12 mL/min; POTASSIUM,K 2.8 mEq/L (3.5-5.1); PROTEIN TOTAL,TP 6.7 g/dl (6.4-8.2)
[2023-04-08] MEDS ORDERED: Potassium Chloride 20 MEQ Tab.ER PO ONE (19:35)
== END 2023-04-08 20:03 | disposition home or self-care (01) ==
LOC: JD.ED 17:21
DX: N13.2 Hydronephrosis with renal and ureteral calculous obstruction (principal); E87.6 Hypokalemia; Z88.8 Allergy status to other drugs, medicaments and biological substances
CPT/HCPCS: 36415; 74176; 80053; 81001; 85025; 87086; 99284; A9270; J3490

== ENCOUNTER 2024-04-29 15:34 | Emergency (ER) | payer BC ==
[2024-04-29 15:43] VITALS: BP 127/79; PULSE 81
[2024-04-29 17:55] LABS: BASOPHILS ABSOLUTE AUTO 0.1 K/mm3 (0.0-0.2); BASOPHILS PERCENT AUTO 0.9 % (0.0-1.0); EOSINOPHILS ABSOLUTE AUTO 0.1 K/mm3 (0.0-0.4); EOSINOPHILS PERCENT AUTO 2.3 % (0.0-6.0); HEMATOCRIT 37.4 % (37.0-47.0); HEMOGLOBIN 12.6 gm/dl (12.0-16.0); IMMATURE GRAN ABSOLUTE AUTO 0.02 K/mm3 (0.00-0.05); IMMATURE GRAN PERCENT AUTO 0.3 % (0.0-0.4); LYMPHOCYTES ABSOLUTE AUTO 1.1 K/mm3 (1.0-4.8); LYMPHOCYTES PERCENT AUTO 18.4 % (24.0-44.0); MEAN CORPUSCULAR HEMOGLOBIN 31.2 pg (28.0-32.0); MEAN CORPUSCULAR HGB CONC 33.7 g/dl (32.0-36.0); MEAN CORPUSCULAR VOLUME 92.6 fl (83.0-99.0); MONOCYTES ABSOLUTE AUTO 0.7 K/mm3 (0.0-0.8); MONOCYTES PERCENT AUTO 11.5 % (0.0-8.0); NEUTROPHILS ABSOLUTE AUTO 3.8 K/mm3 (1.8-7.7); NEUTROPHILS PERCENT AUTO 66.6 % (41.0-71.0); PLATELET COUNT,PLT 219 K/mm3 (150-400); RED BLOOD CELL COUNT 4.04 M/mm3 (4.10-5.30); WHITE BLOOD CELL COUNT,WBC 5.72 K/mm3 (3.9-11.3)
[2024-04-29] MEDS: Ketorolac 60 MG/2 ML SDV IM ONE (18:00)
[2024-04-29 18:19] LABS: LACTIC ACID 0.4 mmol/L (0.4-2.0)
[2024-04-29 18:26] LABS: A/G RATIO 1.1 (1-2); ALBUMIN 3.4 g/dl (3.4-5.0); ANION GAP 11.5 (5-15); BILIRUBIN TOTAL 0.5 mg/dL (0.2-1.0); BUN/CREATININE RATIO 16.4 (14-18); C-REACTIVE PROTEIN 0.7 mg/dL (<0.30); CALCIUM 9.3 mg/dL (8.5-10.1); CREATININE 1.1 mg/dL (0.55-1.02); EST CRCL DRUG DOSING (CG) 59.27 mL/min; POTASSIUM,K 3.5 mEq/L (3.5-5.1); PROTEIN TOTAL,TP 6.5 g/dl (6.4-8.2)
== END 2024-04-29 20:44 | disposition home or self-care (01) ==
LOC: JD.ED 15:34
DX: M25.561 Pain in right knee (principal); E03.9 Hypothyroidism, unspecified; Z88.8 Allergy status to other drugs, medicaments and biological substances; Z79.899 Other long term (current) drug therapy; Z90.710 Acquired absence of both cervix and uterus; Z86.16 Personal history of COVID-19
CPT/HCPCS: 36415; 73562; 80053; 83605; 85025; 86140; 96372; 99283; J1885

== ENCOUNTER 2024-06-05 06:30 | Day surgery (SDC) | payer BC ==
[~2024-06-05 06:30] MED LIST: Lactated Ringers 1,000 ML IV SCH; Morphine 8 MG, EPINEPHrine 0.3 MG, Cefuroxime 750 MG, Ketorolac 30 MG, Sodium Chloride ... PRN; Sodium Chloride 0.9% 10 ML Syringe FLUSH PRN; Sodium Chloride 0.9% 10 ML Syringe FLUSH SCH
[2024-06-05] MEDS: Lactated Ringers 1,000 ML IV SCH (06:45)
[2024-06-05] MEDS: oxyCODONE ER 10 MG TAB.ER PO SCH (06:56)
[2024-06-05] MEDS: Pregabalin 25 MG Cap PO SCH (06:57)
[2024-06-05] MEDS: Acetaminophen 325 MG Tab PO SCH (06:57)
[2024-06-05] MEDS ORDERED: Ondansetron 4 MG/2 ML SDV ONE (07:40)
[2024-06-05] MEDS ORDERED: Midazolam 1 MG/ML 2 ML SDV ONE (07:41)
[2024-06-05] MEDS ORDERED: fentaNYL 100 MCG/2 ML SDV ONE (07:41)
[2024-06-05] MEDS ORDERED: ceFAZolin 2 GM Vial ONE (08:00)
[2024-06-05] MEDS ORDERED: Propofol 200 MG/20 ML SDV ONE (08:44)
[2024-06-05] MEDS: Morphine 8 MG, EPINEPHrine 0.3 MG, Cefuroxime 750 MG, Ketorolac 30 MG, Sodium Chloride ... PRN (08:55)
[2024-06-05] MEDS: Vancomycin 1 GM SDV ONE (09:02)
[2024-06-05] MEDS: Tranexamic Acid 1,000 MG/10 ML Vial ONE (09:02)
[2024-06-05] MEDS: Bupivacaine 0.25% 10 ML SDV ONE (09:19)
[2024-06-05] MEDS: Triamcinolone Acetonide 40 MG/ML 1 ML SDV ONE (09:19)
[2024-06-05] MEDS ORDERED: Ropivacaine 0.5% 5 MG/ML 30 ML SDV ONE (09:28)
[2024-06-05] MEDS ORDERED: Ondansetron 4 MG/2 ML SDV IVPUSH PRN (09:48)
[2024-06-05] MEDS ORDERED: HYDROmorphone 0.5 MG/0.5 ML Syringe IVPUSH PRN (09:48)
[2024-06-05] MEDS: fentaNYL 100 MCG/2 ML SDV IVPUSH PRN (09:55)
[2024-06-05] MEDS: fentaNYL 100 MCG/2 ML SDV ONE (09:56)
[2024-06-05] MEDS: oxyCODONE 5 MG Tab PO PRN (10:30)
[2024-06-05 13:59] VITALS: BP 121/66; PULSE 73
== END 2024-06-05 13:55 | disposition home or self-care (01) ==
LOC: JD.SDS 06:30
PROVIDERS: ATTEND Orthopaedic Surgery
DX: M17.0 Bilateral primary osteoarthritis of knee (principal); E78.00 Pure hypercholesterolemia, unspecified; Z79.899 Other long term (current) drug therapy
CPT/HCPCS: 0055T; 20610; 27447; 64447; 73560; 97110; 97161; 97530; A9270; C1713; C1776; J0171; J0665; J0690; J0697; J1885; J2250; J2270; J2405; J2704; J2795; J3010; J3301; J3370; J7120; J3490

== ENCOUNTER 2024-06-06 14:31 | Emergency (ER) | payer BC ==
[2024-06-06 14:48] VITALS: BP 169/84; PULSE 78
[2024-06-06] MEDS: HYDROmorphone 0.5 MG/0.5 ML Syringe IVPUSH ONE ×2 (15:27→16:08)
[2024-06-06] MEDS: oxyCODONE 5 MG Tab PO ONE (17:37)
== END 2024-06-06 17:45 | disposition home or self-care (01) ==
LOC: JD.ED 14:31
DX: G89.18 Other acute postprocedural pain (principal); M25.561 Pain in right knee; E03.9 Hypothyroidism, unspecified; Z88.8 Allergy status to other drugs, medicaments and biological substances; Z79.82 Long term (current) use of aspirin; Z79.899 Other long term (current) drug therapy; Z86.16 Personal history of COVID-19; Z90.710 Acquired absence of both cervix and uterus
CPT/HCPCS: 73562; 93971; 96374; 96376; 99284; A9270; J1170